=== PATIENT | male | born 2000 | race Caucasian/White ===

== ENCOUNTER → 2022-10-10 | Outpatient (CLI) | payer OTHER ==
--- NOTE | 2022-10-10 10:44 | XR ---
EXAMINATION TYPE: XR shoulder complete 3 views RT DATE OF EXAM: 10/10/2022 Comparison: None Clinical History: 21-year-old male S46.911A M54.50 Findings: Slight offset at the AC joint. Subacromial space is preserved. Otherwise, no acute fracture or disloc ation seen. Impression: Slight offset at the AC joint may be projectional. Correlate for any point tenderness to exclude a gr nida 2 AC joint sprain. Otherwise, no acute osseous abnormality seen.
--- NOTE | 2022-10-10 10:45 | XR ---
EXAMINATION TYPE: XR thoracic spine 3 views complete DATE OF EXAM: 10/10/2022 Comparison: None Clinical History: 21-year-old male S46.911A M54.50 Findings: 12 rib bearing thoracic vertebral bodies. All pedicles are visualized. And vertebral body heights are preserved and alignment is maintained. Impression: Unremarkable radiographic thoracic spine.
== END | disposition home or self-care (01) ==
LOC: RADXRMAIN 10:13
PROVIDERS: ATTEND Emergency Medicine
DX: S46.911A Strain of unspecified muscle, fascia and tendon at shoulder and upper arm level, right arm, initial encounter (principal); M54.50 Low back pain, unspecified; X58.XXXA Exposure to other specified factors, initial encounter
CPT/HCPCS: 72072

== ENCOUNTER → 2022-12-18 | Outpatient (CLI) | payer BC ==
--- NOTE | 2022-12-18 14:09 | XR ---
EXAMINATION TYPE: XR KUB DATE OF EXAM: 12/18/2022 COMPARISON: NONE HISTORY: Pain TECHNIQUE: One view abdominal series FINDINGS: The osseous structures are intact. The bowel gas pattern is nonspecific. There is a punctate 2 mm ca lcification overlying the upper pole the left kidney. No suspicious calculi are seen within the visua lized right abdomen or pelvis. IMPRESSION: 1. Nonspecific abdomen. There is a 2 mm left upper quadrant punctate calcification could represent a tiny renal calculus.
== END | disposition home or self-care (01) ==
LOC: RADXRYALE 13:53
PROVIDERS: ATTEND Physician Assistant
DX: N20.0 Calculus of kidney (principal); N23 Unspecified renal colic
CPT/HCPCS: 74018

== ENCOUNTER → 2022-12-21 | Outpatient (CLI) | payer BC ==
--- NOTE | 2022-12-22 10:00 | CT ---
EXAMINATION TYPE: CT abdomen pelvis wo con DATE OF EXAM: 12/21/2022 COMPARISON: None HISTORY: R SIDED FLANK PAIN, PT STATES HE PASSED A KIDNEY STONE CT DLP: 322.80 mGycm Examination of the solid and hollow viscera is limited given the lack of contrast. FINDINGS: LUNG BASES: No evidence for nodule. No evidence for infiltrate. LIVER/GB: The gallbladder is unremarkable. No space-occupying hepatic lesion. PANCREAS: No pancreatic mass identified. No inflammatory process seen. SPLEEN: No evidence for splenomegaly. No intrasplenic lesions seen. ADRENALS: No adrenal nodules identified. No evidence for thickening. KIDNEYS: No evidence for renal mass. Within the right kidney there are 3 or 4 sub-2 mm calculi noted. Within the left kidney there are 3 calculi of similar size. No evidence for obstructive uropathy. No hydronephrosis. Urinary bladder is unremarkable. BOWEL: Appendix has a normal appearance. No evidence of bowel obstruction. No inflammatory process. Lymph nodes: No evidence for adenopathy greater than 1 cm. Abdominal aorta: Atheromatous changes seen. No evidence for aneurysm. Genital organs: No significant abnormality. Other: No significant abnormality. IMPRESSION: 1. Small nonobstructing bilateral nephrolithiasis as discussed.
== END | disposition home or self-care (01) ==
LOC: RADCTMAIN 16:52
PROVIDERS: ATTEND Family Medicine
DX: N20.0 Calculus of kidney (principal); N23 Unspecified renal colic
CPT/HCPCS: 74176

== ENCOUNTER 2023-05-06 18:22 | Emergency (ER) | payer BC ==
[2023-05-06] MEDS ORDERED: DIPH,PERTUS(ACELL)TETVAC-LF 0.5 ML VIAL IM ONE (18:36)
[2023-05-06] MEDS ORDERED: LIDOCAINE 1% INJ 10MG/ML (20 ML MDV) SQ ONE (18:36)
[2023-05-06] MEDS ORDERED: BACITRACIN OINT 1 EACH PACKET TOPICAL ONE (18:37)
--- NOTE | 2023-05-06 18:38 | ED ---
Wound/Laceration HPI - General Chief Complaint: Wound/Laceration Stated Complaint: hand lac Time Seen by Provider: 05/06/23 18:32 Source: patient, RN notes reviewed Mode of arrival: ambulatory Limitations: no limitations - History of Present Illness Initial Comments: Patient is a 22-year-old male presented ER with chief Laceration. Patient states he was working on his car while trying to cut a piece of rubber with a razor blade he accidentally cut his wrist. Patient denies any limited range of motion. Patient tetanus status is unknown. Patient denies any other injuries. - Related Data Allergies Allergy/AdvReac Type Severity Reaction Status Date / Time No Known Allergies Allergy Verified 05/06/23 18:31 Review of Systems ROS Statement: Those systems with pertinent positive or pertinent negative responses have been documented in the HPI. ROS Other: All systems not noted in ROS Statement are negative. Past Medical History Past Medical History: Asthma History of Any Multi-Drug Resistant Organisms: None Reported Past Surgical History: No Surgical Hx Reported Past Psychological History: ADD/ADHD, Anxiety, Depression Smoking Status: Current some day smoker Past Alcohol Use History: Occasional Past Drug Use History: None Reported General Exam Limitations: no limitations General appearance: alert, in no apparent distress Respiratory exam: Present: normal lung sounds bilaterally. Absent: respiratory distress, wheezes, rales, rhonchi, stridor Cardiovascular Exam: Present: regular rate, normal rhythm, normal heart sounds. Absent: systolic murmur, diastolic murmur, rubs, gallop, clicks Extremities exam: Present: other (2+ left radial pulse. 2 cm laceration to medial palm.) Neurological exam: Present: alert, oriented X3, CN II-XII intact Psychiatric exam: Present: normal affect, normal mood Course Vital Signs 05/06/23 18:29 Temperature 98.2 F Pulse Rate 69 Respiratory 22 Rate Blood Pressure 128/79 O2 Sat by Pulse 100 Oximetry Procedures - Laceration Laceration #1 Consent Obtained: verbal consent Indication: laceration Site: hand Size (cm): 2 Description: linear Depth: simple, single layer Anesthetic Used: lidocaine 1% Anesthesia Technique: local infiltration Amount (mls): 2 Pre-repair: wound explored, irrigated extensively, deep structures intact Type of Sutures: nylon Size of Sutures: 4-0 Number of Sutures: 3 Technique: simple, interrupted Patient Tolerated Procedure: well, no complications Medical Decision Making - Medical Decision Making Was pt. sent in by a medical professional or institution (ROSANGELA Padilla, CV RN, urgent care, hospital, or long-term...) When possible be specific @ -No Did you speak to anyone other than the patient for history (EMS, parent, family, police, friend...)? What history was obtained from this source @ -No Did you review nursing and triage notes (agree or disagree)? Why? @ -I reviewed and agree with nursing and triage notes Were old charts reviewed (outside hosp., previous admission, EMS record, old EKG, old radiological studies, urgent care reports/EKG's, long-term records)? Report findings @ -No old charts were reviewed Differential Diagnosis (chest pain, altered mental status, abdominal pain women, abdominal pain men, vaginal bleeding, weakness, fever, dyspnea, syncope, headache, dizziness, GI bleed, back pain, seizure, CVA, palpatations, mental he alth, musculoskeletal)? @ -Laceration, abrasion, cellulitis, skin tear EKG interpreted by me (3pts min.). @ -None X-rays interpreted by me (1pt min.). @ -None done CT interpreted by me (1pt min.). @ -None done U/S interpreted by me (1pt. min.). @ -None done What testing was considered but not performed or refused? (CT, X-rays, U/S, labs)? Why? @ -None What meds were considered but not given or refused? Why? @ -None Did you discuss the management of the patient with other professionals (professionals i.e. ROSANGELA Paidlla, CV RN, lab, RT, psych nurse, social staff worker, contact lens curve grinder, teacher, chief knowledge officer, case worker)? Give summary @ -No Was smoking cessation discussed for >3mins.? @ -No Was critical care preformed (if so, how long)? @ -No Were there social determinants of health that impacted care today? How? (Homelessness, low income, unemployed, alcoholism, drug addiction, transportation, low edu. Level, literacy, decrease access to med. care, penitentiary, rehab)? @ -No Was there de-escalation of care discussed even if they declined (Discuss DNR or withdrawal of care, Hospice)? DNR status @ -No What co-morbidities impacted this encounter? (DM, HTN, Smoking, COPD, CAD, Cancer, CVA, ARF, Chemo, Hep., AIDS, mental health diagnosis, sleep apnea, morbid obesity)? @ -None Was patient admitted / discharged? Hospital course, mention meds given and route, prescriptions, significant lab abnormalities, going to OR and other pertinent info. @ -Discharge. Patient's vital signs remained stable. Upon examination is a 2 cm laceration noted to the medial aspect of left palm. Patient received tetanus vaccination. Laceration was closed using 3 simple interrupted sutures. I discussed with the patient return parameters and to have sutures removed in 7-10 days. Patient be discharged in stable condition with follow-up to PCP. Patient expressed understanding and agreement with care plan. Undiagnosed new problem with uncertain prognosis? @ -No Drug Therapy requiring intensive monitoring for toxicity (Heparin, Nitro, Insulin, Cardizem)? @ -No Were any procedures done? @ -No Diagnosis/symptom? @ -Laceration Acute, or Chronic, or Acute on Chronic? @ -Acute Uncomplicated (without systemic symptoms) or Complicated (systemic symptoms)? @ -Uncomplicated Side effects of treatment? @ -No Exacerbation, Progression, or Severe Exacerbation? @ -No Poses a threat to life or bodily function? How? (Chest pain, [place], [place], pneumonia, PE, COPD, DKA, ARF, appy, cholecystitis, CVA, Diverticulitis, Homicidal, Suicidal, threat to staff... and all critical care pts) @ -No Disposition Clinical Impression: Laceration Disposition: HOME SELF-CARE Condition: Stable Additional Instructions: Please return to the Emergency Department if symptoms worsen or any other concerns. Please have sutures removed in 7-10 days. Is patient prescribed a controlled substance at d/c from ED?: No Referrals: Girish Enriquez DO [Primary Care Provider] - 1-2 days Time of Disposition: 19:10
[2023-05-06 18:44] VITALS: BP 128/79; PULSE 69; TEMP 98.2
[2023-05-06 19:40] VITALS: RESP 16
== END 2023-05-06 19:23 | disposition home or self-care (01) ==
LOC: EC 18:22
DX: S61.412A Laceration without foreign body of left hand, initial encounter (principal); J45.909 Unspecified asthma, uncomplicated; F17.200 Nicotine dependence, unspecified, uncomplicated; Z86.59 Personal history of other mental and behavioral disorders; Z23 Encounter for immunization; W26.8XXA Contact with other sharp object(s), not elsewhere classified, initial encounter
CPT/HCPCS: 90715; 99282; 90471; 12001; J2001